=== PATIENT | male | born 1975 | race Caucasian/White ===

== ENCOUNTER 2025-05-17 13:35 | Emergency (ER) | payer SELFPAY ==
[2025-05-17 13:46] VITALS: BP 148/100
--- NOTE | 2025-05-17 14:41 | ED.GENMED ---
History of Present Illness
General
Chief Complaint: Weakness
Time Seen by Provider: 05/17/25 14:23
Nursing documentation reviewed up to this point in time: agreed with
History of Present Illness
History of Present Illness:
49-year-old male presents to the ER for evaluation of feeling generally unwell over the last 3 or so days. Patient notes last week that he had a very strong odor of fish about his person. He feels that when he heavily exerts himself and is
sweating a lot he does notice the odor of fish. He has cut down his fish intake but is concerned that this may be related to some difficulty with dietary metabolism. No prior history of significant metabolic disorder. Only prescription
medications at current time are citalopram and testosterone therapy. He gives himself injections on Mondays and Fridays of the testosterone. He states that he sometimes uses BuSpar for additional anxiety relief. He has been eating and drinking
without difficulty. He has had subjective fevers over the past 3 days but has not had any temperature elevation. He reports generalized achiness to all of his muscles and joints. No reported rash. No cough or cold symptoms, though he reports
that his 11-year-old son is now coming down with a cold. He reports a stronger color to his urine in the past few days. No abdominal pain, nausea vomiting or diarrhea. No peripheral edema. No chest pain. No syncope or trauma.
Past History
Past History
ED Past Medical History: Psychiatric
ED Past Surgical History: Negative Orthopedic
Social History
Tobacco: Non-smoker
Alcohol: None
Drug: None
Personal:
Living: with family
Employment: Employed
Family History
Family History: Hypertension
Phy Exam
Physical Exam
Physical Exam:
Patient is awake, alert, appears in no acute distress, head is normocephalic atraumatic, PERRL, no photophobia, EOMI, mucous membranes moist, posterior pharynx appears clear without erythema or exudates, moving easily on the stretcher without
difficulty, heart regular rate and rhythm without murmurs or ectopy, lungs are clear to auscultation no wheezes rales or rhonchi, abdomen is soft and nontender on palpation, no guarding or rebound, extremities without edema, no rash noted, 2+ DP
pulses present symmetric bilateral feet, GCS is 15
Course
Orders/Labs/Results
Orders:
Orders
05/17/25 14:33
0.9% Sodium Chloride 1000 ml [Nss] 1,000 ml IV BOLUS
05/17/25 14:34
Ketorolac [Toradol] 15 mg IV NOW STA
05/17/25 14:54
COVID-19 Antigen Urgent
Source: Nasal Swab
Complete Blood Count/With Diff Urgent
Comprehensive Metabolic Panel Urgent
Lyme Progressive Routine
Magnesium Urgent
Total CK [Creatine Phosphokinase] Urgent
Abnormal Lab Results
05/17/25
14:54
WBC 12.6 H 10^3/uL
(4.8-10.8)
MCH 26.8 L pg
(27.0-31.0)
MCHC 32.9 L g/dL
(33.0-37.0)
RDW 14.8 H %
(11.5-14.5)
Absolute Neuts (auto) 9.9 H 10^3/uL
(1.4-6.5)
Absolute Monos (auto) 1.1 H 10^3/uL
(0.1-0.6)
Neutrophils % 78.6 H %
(42.2-75.2)
Lymphocytes % 11.5 L %
(20.5-51.1)
05/17/25 14:54
05/17/25 14:54
Labs are very reassuring, negative CK-MB, negative COVID, white blood count mildly elevated at 12. Kidney function preserved
Vital Signs
Initial and Last Documented VS:
Initial Vital Signs
Temp Pulse Resp BP Pulse Ox
98.8 F 88 17 148/100 99
05/17/25 13:46 05/17/25 13:46 05/17/25 13:46 05/17/25 13:46 05/17/25 13:46
Last Documented Vital Signs
Temp Pulse Resp BP Pulse Ox
98.8 F 98 17 125/73 98
05/17/25 13:46 05/17/25 15:38 05/17/25 13:46 05/17/25 15:00 05/17/25 15:30
MDM/Problems Addressed
Differential Diagnosis Includes:
Differential diagnosis considered but not limited to COVID, viral syndrome, rhabdomyolysis, dehydration, acute kidney injury, Lyme along with other etiologies considered
*Pulse Oximetry
SaO2: 99
Oxygen Mode of Delivery: Room air
Patient hypoxic: no
*Critical Care Note
Total Time (30-74mins, 75-104mins- exclusive of procedures): Not Applicable
Update Note
Update Note:
Will give liter of fluids and Toradol for symptoms while awaiting labs. Patient agrees with plan at current.
I reviewed with patient very reassuring workup in the ER. He feels much better after Toradol and IV fluids. I discussed with patient likely viral etiology of symptoms and pending Lyme titers. Patient expressed understanding of discharge
instructions including benefit of follow-up with his primary care physician. He had no questions prior to leaving the department.
ED Attending Note
-
Portions of this chart may have been created with voice recognition software.� Occasional wrong word or��sound alike� substitutions may have occurred due to the inherent limitations of voice recognition software.
Discharge Plan
Departure
Patient Disposition: Home (Routine Discharge)
Date of Disposition: 05/17/25
Time of Disposition: 16:11
Patient with high blood pressure during this ER visit?: No
Discharge Problem:
Acute viral syndrome
Instructions: Muscle, joint, and bone pain - Discharge instructions
Prescriptions:
No Action
citalopram 20 MG tablet
20 mg PO DAILY
Ibuprofen
3 tab PO PRN PRN (Reason: HART)
oxycodone-acetaminophen 5 MG/325 MG tablet
1 tab PO .Q4-6HPRN PRN (Reason: pain) Qty: 20 0RF
ibuprofen 600 MG tablet
600 mg PO Q6H Qty: 30 0RF
diazepam 5 MG tablet
5 mg PO TIDPRN PRN (Reason: pain) Qty: 14 0RF
sulfamethoxazole-trimethoprim 1 TABLET tablet
1 tab PO BID Qty: 20 0RF
prednisone 10 MG tablet
10 mg PO DAILY Qty: 30 0RF
Rx Instructions:
take 50mg, for 2 days then taper to 40mg, 30mg, 20mg, 10mg each daily for 2 days w/ a meal
hydrocodone-acetaminophen 1 EACH tablet
1 ea PO Q4HPRN PRN (Reason: severe pain) Qty: 12 0RF
Referrals:
NONE,* [Family Provider, Internal Medicine]
Activity Restrictions/Additional Instructions:
Encourage fluids. Continue using Tylenol or ibuprofen as needed for discomforts. Please follow-up with your family physician this week for reevaluation, your Lyme test results and further care. Return to the ER for any concerns
Interventions
Interventions:
*Risk Screen - Suicide Last Done: 05/17/25 13:49
*General Assessment Last Done: 05/17/25 13:49
*Neglect/Abuse Screening Last Done: 05/17/25 13:49
*ED- Fall Risk Assessment Last Done: 05/17/25 14:46
*ED COVID-19 Vaccine History Last Done: 05/17/25 13:49
*Nursing Disposition Last Done: 05/17/25 16:29
ED- Cardiac Assessment Last Done: 05/17/25 14:45
ED- Neurological Assessment Last Done: 05/17/25 14:45
ED- Pulmonary Assessment Last Done: 05/17/25 14:45
Discharge Date and Time
Discharge Date/Time: 05/17/25 16:29
Print Language: BURKINAN
[2025-05-17 14:46] VITALS: BMI 31.3
[2025-05-17 14:47] VITALS: BP 120/74
[2025-05-17] MEDS: NSS 1000 IV (14:55)
[2025-05-17] MEDS: TORADOL 15 MG IV (14:59)
[2025-05-17 15:00] VITALS: BP 125/73
[2025-05-17 15:03] LABS: Hematocrit 42.0 % (39.0-52.0); Hemoglobin 13.8 g/dL (13.0-18.0); Mean Corp Hgb Conc. 32.9 g/dL (33.0-37.0); Mean Corpuscular Volume 81.6 fL (80.0-94.0); Nucleated Red Blood Cells % 0 % (-); Platelet Count 304 10^3/uL (130-400); Red Cell Dist. Width 14.8 % (11.5-14.5)
[2025-05-17 15:18] LABS: COVID-19 Antigen Negative (Negative)
[2025-05-17 15:54] LABS: ALT (SGPT) 22 U/L (0-50); AST (SGOT) 29 U/L (17-59); Albumin 4.1 g/dl (3.5-5.0); Alkaline Phosphatase 57 U/L (38-126); Blood Urea Nitrogen 16 mg/dl (9-20); Calcium 9.0 mg/dl (8.4-10.2); Carbon Dioxide 29 mmol/L (22-30); Chloride 103 mmol/L (98-107); Estimated Creatinine Clearance 98 ml/min; Glucose 84 mg/dl (70-99); Magnesium 2.3 mg/dl (1.6-2.3); Potassium 4.0 mmol/L (3.5-5.1); Sodium 136 mmol/L (135-145); Total Protein 6.7 g/dl (6.3-8.2); eGFR > 60.00
[2025-05-18 12:06] LABS: Lyme Antibody Screen, EIA Negative (Negative)
== END 2025-05-17 16:29 | disposition home or self-care (01) ==
LOC: EMR 13:35
PROVIDERS: EMERGENCY PHYSICIAN Emergency Medicine
DX: R53.1 Weakness (principal); B34.9 Viral infection, unspecified; F41.9 Anxiety disorder, unspecified; Z82.49 Family history of ischemic heart disease and other diseases of the circulatory system
CPT/HCPCS: 99283; 96374; 96361; 80053; 82550; 83735; 85025; 86618; 87811